=== PATIENT | female | born 1980 | race Caucasian/White ===

== ENCOUNTER 2016-08-05 10:29 | Emergency (ER) | payer MEDICAID ==
[~2016-08-05] VITALS: Wt 53.0 kg
--- NOTE | 2016-08-05 12:18 | ERD ---
ER Documentation Chief Complaint Date/Time DATE: 08/05/16 TIME: 12:15 Chief Complaint lowery, n/v, cough HPI Patient is a 36-year-old female who presents to the ED with headache, cough, sore throat and dizziness. She states that one week ago she developed a headache on the right side. She has no history of past headaches and has never had a headache like this before. She denies stating that this is the worst headache of her life. She does not state that the pain came on hard and suddenly but states that in the last week the pain has been constant. Denies blurry vision, difficulty hearing. Denies photophobia, phonophobia. Denies rhinorrhea. Denies nausea vomiting. She states that she took Advil yesterday which relieved the symptoms after an hour. But she states that she has dizziness for the last week and is concerned. Denies blurry vision, fever, chills, vomiting, nausea, abdominal pain, constipation or diarrhea. ROS All systems reviewed and are negative except as per history of present illness. Medications Home Meds Active Scripts Ciprofloxacin Hcl/Dexameth (Ciprodex Otic Suspension) 7.5 Ml Drops.susp, 4 DROP RIGHT EAR BID for 7 Days, EA Prov:VIVIAN REILLY-C 08/05/16 Benzonatate* (Tessalon Perle*) 100 Mg Capsule, 100 MG PO Q8H Y for COUGH for 10 Days, CAP Prov:VIVIAN REILLY-C 08/05/16 Ibuprofen* (Motrin*) 600 Mg Tab, 600 MG PO Q6, #30 TAB Prov:VIVIAN REILLY-C 08/05/16 Allergies Allergies: Coded Allergies: No Known Allergy (Unverified , 08/05/16) PMhx/Soc Medical and Surgical Hx: pt denies Medical Hx, pt denies Surgical Hx Hx Alcohol Use: No Hx Substance Use: No Hx Tobacco Use: No Smoking Status: Never smoker Physical Exam Vitals Vital Signs Date Time Temp Pulse Resp B/P Pulse Ox O2 Delivery O2 Flow Rate FiO2 08/05/16 10:34 97.8 89 20 102/73 97 Physical Exam GENERAL: Well-developed, well-nourished female. Appears in no acute distress. HEAD: Normocephalic, atraumatic. EYES: Pupils are equally reactive bilaterally. EOMs grossly intact. No conjunctival erythema. No nystagmus ENT: Moist mucous membranes. No uvula deviation. No kissing tonsils. No exudates. NECK: Supple. No lymphadenopathy or thyromegaly. No meningismus. negative kernig. negative brudinski. LUNG: Clear to auscultation bilaterally. No rhonchi, wheezing, rales or coarse breath sounds. HEART: Regular rate and rhythm. No murmurs, rubs or gallops. Extremities: Equal pulses bilaterally. No peripheral clubbing, cyanosis or edema. No unilateral leg swelling. NEUROLOGIC: Alert and oriented. Moving all four extremities. 5/5 strength in all extremities. Normal speech. Steady gait. Cranial nerves II through XII intact. SKIN: Normal color. Warm and dry. No rashes or lesions. Capillary refill < 2 seconds Results 24 hrs Current Medications Medications (Trade) Dose Ordered Sig/Era Route PRN Reason Start Time Stop Time Status Last Admin Dose Admin Ibuprofen (Motrin) 600 mg ONCE ONCE PO 08/05/16 13:30 08/05/16 13:31 DC 08/05/16 13:18 Procedures/MDM ER COURSE: I kept the patient and/or family informed of laboratory and diagnostic imaging results throughout the emergency room course. EKG, MONITORS, & DIAGNOSTIC IMAGING: [place] [id number] Radiology Main Line: [phone] DIAGNOSTIC IMAGING REPORT Patient: TOMMY RICHTER : 1980 Age: 36 Sex: F [id number] DOS: 08/05/16 1113 Ordering MD: VIVIAN REILLY PA-C Location: [facility] Room/Bed: PROCEDURE: CT Brain without contrast. CLINICAL INDICATION: Headache, dizziness TECHNIQUE: Routine CT scan of the brain was performed on a high resolution multi detector scanner without intravenous contrast. One or more of the following dose reduction techniques were used: Automated exposure control; Adjustment of the mA and/or kV according to patient size; Use of iterative reconstruction technique. CTDI = 45 mGy. DLP = 630 mGy-cm. COMPARISON: No prior relevant examinations are available for comparison. FINDINGS: Hemorrhage: No evidence of intracranial hemorrhage. Acute ischemic changes: No evidence of acute ischemic changes. Mass effect/Midline shift: None. Parenchymal volume: Within normal limits for age. Ventricular system: Concordant with parenchymal volume. Chronic changes: Parenchymal attenuation is within normal limits. Extracranial soft tissues: Unremarkable. Calvarium: No fractures. Paranasal sinuses: Visualized paranasal sinuses are clear. Mastoid air cells: Visualized mastoid air cells are clear. IMPRESSION: No acute intracranial abnormalities. Normal appearance the brain parenchyma. MRI of the brain may be useful for further evaluation. RPTAT: AADD .Kyrie Scanlon MD, MD Date Time Electronically viewed and signed by .Kyrie Scanlon MD, MD on 08/05/2016 12:45 .B/ CC: VIVIAN REILLY PA-C PROCEDURES: Ibuprofen 600. Tolerated medication well with no adverse reaction LAB INTERPRETATION: Urine test was negative. MEDICAL DECISION MAKING: This is a 36-year-old female who presents with cough, runny nose, headache, dizziness. Vital signs were reviewed. Patient is afebrile. Patient is not hypoxic. Patient is not toxic or ill-appearing. Patient likely has URI of viral etiology, her headache is of uncertain etiology. A CAT scan was ordered in the ED patient was requesting it and due to the dizziness and new onset of headache a CT scan was ordered. Risk versus benefits discussed with patient. Low suspicion for intracranial hemorrhage, meningitis, intracranial mass, concussion, temporal arteritis, stroke, elevated intracranial pressure, seizure. Low suspicion for pneumonia, PE, pneumothorax, ACS, epiglottitis, obstruction, TB, pertussis, meningitis, sepsis. DISCHARGE: At this time, patient is stable for discharge and outpatient management with no new complaints during the ER course. Patient was sent home with Ciprodex, Tessalon Perles and ibuprofen. Patient will be discharged home with instructions to recheck for new or worsening symptoms such as fever, nausea, weakness, LOC and to follow up with primary care in the next 1-2 days. Patient was advised to return to the ER for any new or worsening symptoms. Plan was discussed and patient and/or family understands and agrees. Home instructions were given. Departure Diagnosis: Primary Impression: URI, acute Additional Impression: Headache Headache type: unspecified Headache chronicity pattern: unspecified pattern Intractability: not intractable Qualified Code: R51 - Nonintractable headache, unspecified chronicity pattern, unspecified headache type Condition: Stable VIVIAN REILLY PA-C Aug 05, 2016 12:18
--- NOTE | 2016-08-05 12:45 | RADRPT ---
PROCEDURE: CT Brain without contrast. CLINICAL INDICATION: Headache, dizziness TECHNIQUE: Routine CT scan of the brain was performed on a high resolution multi detector scanner without intravenous contrast. One or more of the following dose reduction techniques were used: Auto mated exposure control; Adjustment of the mA and/or kV according to patient size; Use of iterative r econstruction technique. CTDI = 45 mGy. DLP = 630 mGy-cm. COMPARISON: No prior relevant examinations are available for comparison. FINDINGS: Hemorrhage: No evidence of intracranial hemorrhage. Acute ischemic changes: No evidence of acute ischemic changes. Mass effect/Midline shift: None. Parenchymal volume: Within normal limits for age. Ventricular system: Concordant with parenchymal volume. Chronic changes: Parenchymal attenuation is within normal limits. Extracranial soft tissues: Unremarkable. Calvarium: No fractures. Paranasal sinuses: Visualized paranasal sinuses are clear. Mastoid air cells: Visualized mastoid air cells are clear. IMPRESSION: No acute intracranial abnormalities. Normal appearance the brain parenchyma. MRI of the brain may be useful for further evaluation. RPTAT: AADD .Kyrie Scanlon MD, MD Date Time Electronically viewed and signed by .Kyrie Scanlon MD, MD on 08/05/2016 12:45 .B/
[2016-08-05] MEDS ORDERED: IBUP-1542 PO (13:04)
[2016-08-05] MEDS ORDERED: BENZ100C70 PO (13:04)
[2016-08-05] MEDS ORDERED: CIPR7.5D4 RIGHT EAR (13:05)
[2016-08-05] MEDS ORDERED: IBUPROFEN 600 MG TAB PO ONE (13:30)
== END 2016-08-05 13:31 | disposition home or self-care (01) ==
LOC: FTE 10:29
DX: J06.9 Acute upper respiratory infection, unspecified (principal)
CPT/HCPCS: 70450; Z7502; Z7610